=== PATIENT | male | born 1990 | race African-American/Black ===

== ENCOUNTER 2019-10-30 08:07 | Emergency (ER) | payer BC, OTHER ==
[~2019-10-30] VITALS: Ht 172.7 cm; Wt 68.0 kg
[2019-10-30 08:08] VITALS: BP 116/75
[2019-10-30] MEDS ORDERED: TESSALON PERLE100 M1 PO (08:29)
[2019-10-30] MEDS ORDERED: ZOFRAN ODT4 MG PO (08:29)
== END 2019-10-30 08:56 | disposition home or self-care (01) ==
LOC: ER 08:07
DX: B34.9 Viral infection, unspecified (principal)